=== PATIENT | female | born 1970 | race African-American/Black ===

== ENCOUNTER 2025-04-14 02:44 | Emergency (ER) | payer OTHER ==
[~2025-04-14] VITALS: Ht 165.1 cm; Wt 131.5 kg
[2025-04-14 02:58] VITALS: BP 173/118; TEMP 98.2
[2025-04-14] MEDS ORDERED: ACET-2030 PO (03:36)
[2025-04-14] MEDS ORDERED: KETO10TA2 PO (03:36)
[2025-04-14 03:40] VITALS: O2SAT 98
[2025-04-14] MEDS ORDERED: ACETAMINOPHEN ES 500 MG TABLET ONE (03:42)
[2025-04-14] MEDS ORDERED: IBUPROFEN 400 MG TABLET ONE (03:42)
[2025-04-14] MEDS: ACETAMINOPHEN ES 500 MG TABLET PO ONE (03:53)
[2025-04-14] MEDS: IBUPROFEN 400 MG TABLET PO ONE (03:53)
== END 2025-04-14 04:02 | disposition home or self-care (01) ==
LOC: ER 02:44
DX: S63.591A Other specified sprain of right wrist, initial encounter (principal); J45.909 Unspecified asthma, uncomplicated; W18.39XA Other fall on same level, initial encounter; Y93.89 Activity, other specified; Y92.89 Other specified places as the place of occurrence of the external cause; Y99.8 Other external cause status
CPT/HCPCS: 73110